=== PATIENT | female | born 1970 | race Caucasian/White ===

== ENCOUNTER 2016-12-15 09:23 | Emergency (ER) | payer OTHER ==
[2016-12-15 11:18] LABS: BILIRUBIN NEGATIVE (NEGATIVE); BLOOD NEGATIVE Ery/uL (NEGATIVE); CLARITY CLEAR (CLEAR); COLOR YELLOW (YELLOW); GLUCOSE (U) NORMAL (NORMAL); KETONE (U) NEGATIVE (NEGATIVE); LEUKOCYTES NEGATIVE Leu/uL (NEGATIVE); NITRITE NEGATIVE (NEGATIVE); PROTEIN NEGATIVE (NEGATIVE); SPECIFIC GRAVITY 1.015 (1.001-1.030)
== END 2016-12-15 11:29 | disposition home or self-care (01) ==
LOC: FER 09:23
PROVIDERS: Emergency Medicine
DX: S06.0X0A Concussion without loss of consciousness, initial encounter (principal); S30.0XXA Contusion of lower back and pelvis, initial encounter; M54.6 Pain in thoracic spine; M54.2 Cervicalgia; J45.909 Unspecified asthma, uncomplicated; F17.210 Nicotine dependence, cigarettes, uncomplicated; W01.0XXA Fall on same level from slipping, tripping and stumbling without subsequent striking against object, initial encounter; Y92.69 Other specified industrial and construction area as the place of occurrence of the external cause; Y99.0 Civilian activity done for income or pay
CPT/HCPCS: 70450; 72072; 72125; 72170; 81003; J1885